=== PATIENT | female | born 1995 ===

== ENCOUNTER 2018-07-03 09:50 | Observation (INO) | payer MEDICAID | END 2018-07-03 12:00 | disposition home or self-care (01) | DRG 566 | LOC: LDRP 09:50 | PROVIDERS: ADMIT Obstetrics & Gynecology; ATTEND Obstetrics & Gynecology | DX: O48.0 Post-term pregnancy (principal); Z3A.40 40 weeks gestation of pregnancy | CPT/HCPCS: 59025; 76818; 81002; G0378 ==

== ENCOUNTER 2018-07-05 09:45 | Observation (INO) | payer MEDICAID ==
[2018-07-05] MEDS ORDERED: PREN-96 PO (10:00)
== END 2018-07-05 11:03 | disposition home or self-care (01) | DRG 566 ==
LOC: LDRP 09:45
PROVIDERS: ADMIT Obstetrics & Gynecology; ATTEND Obstetrics & Gynecology
DX: O48.0 Post-term pregnancy (principal); O26.893 Other specified pregnancy related conditions, third trimester; R10.9 Unspecified abdominal pain; Z3A.40 40 weeks gestation of pregnancy
CPT/HCPCS: 59025; 76818; 81002; G0378

== ENCOUNTER 2018-07-07 11:10 | Observation (INO) | payer MEDICAID ==
[~2018-07-07 11:10] MED LIST: PREN-96 PO
== END 2018-07-07 13:25 | disposition home or self-care (01) | DRG 566 ==
LOC: LDRP 11:10
PROVIDERS: ADMIT Specialist; ATTEND Specialist
DX: O48.0 Post-term pregnancy (principal); Z3A.40 40 weeks gestation of pregnancy
CPT/HCPCS: 59025; 76818; 81002; G0378

== ENCOUNTER 2018-07-09 10:10 | Observation (INO) | payer MEDICAID ==
[~2018-07-09] VITALS: Ht 157.5 cm; Wt 90.7 kg
== END 2018-07-09 12:35 | disposition home or self-care (01) | DRG 566 ==
LOC: LDRP 10:10
PROVIDERS: ADMIT Specialist; ATTEND Specialist
DX: O48.0 Post-term pregnancy (principal); O26.893 Other specified pregnancy related conditions, third trimester; R10.9 Unspecified abdominal pain; O62.9 Abnormality of forces of labor, unspecified; Z3A.40 40 weeks gestation of pregnancy
CPT/HCPCS: 59025; 76818; 81002; G0378

== ENCOUNTER 2018-07-10 09:50 | Inpatient (IN) | payer MEDICAID ==
[~2018-07-10] VITALS: Ht 157.5 cm; Wt 90.7 kg
[2018-07-10] MEDS ORDERED: LACT. RINGERS/OXYTOCIN 20UNITS 1,000 ML IV SCH (10:04)
[2018-07-10] MEDS ORDERED: LIDOCAINE 2% (LOCAL ANESTH.) PF 5ml SDV ID ONE (10:15)
[2018-07-10] MEDS ORDERED: DERMOPLAST 60ML BOTTLE TOP PRN (10:15)
[2018-07-10] MEDS ORDERED: CARBOPROST TROMETHAMINE 250 MCG/1ML VIAL IM PRN (10:15)
[2018-07-10] MEDS ORDERED: METHYLERGONOVINE MALEATE 0.2 MG/ML AMP IM PRN (10:15)
[2018-07-10] MEDS ORDERED: PHISODERM TOP SOLN 240ML BTL TOP PRN (10:15)
[2018-07-10] MEDS ORDERED: NALBUPHINE HCL 10 MG/1ml INJECTION IV PRN (10:15)
[2018-07-10] MEDS ORDERED: WITCH HAZEL-GLYCERIN PAD TOP PRN (10:15)
[2018-07-10 10:37] LABS: Basophils # (auto) 0 uL; Basophils % (auto) 0.3 % (0.0-2.0); Eosinophils # (auto) 0.1 uL; Hematocrit 40.6 % (36.0-46.0); Hemoglobin 13.8 g/dL (12.2-16.2); Lymphocytes # (auto) 1.6 uL; Lymphocytes % (auto) 20.3 % (10.0-50.0); Mean Corpuscular Hemoglobin 29.9 pg (28.0-32.0); Mean Corpuscular Hgb Conc. 33.9 g/dL (32.0-36.0); Monocytes # (auto) 0.7 uL; Monocytes % (auto) 9.5 % (0.0-12.0); Neutrophils # (auto) 5.3 uL; Neutrophils % (auto) 68.9 % (37.0-80.0); Nucleated Red Blood Cells % 0.1 %; Platelet Count (auto) 264 10^3/uL (140-450); Red Blood Cells 4.62 10^6/uL (4.0-5.20); Red Cell Distribution Width 14.7 % (11.8-14.3); White Blood Cell 7.8 10^3/uL (4.4-10.8)
[2018-07-10 10:46] LABS: Urine Bacteria FEW /hpf (None Seen); Urine Blood Negative /uL (Negative); Urine Mucus FEW (None Seen); Urine Specific Gravity 1.026 (1.001-1.035); Urine WBC 36 /hpf (0 - 5)
[2018-07-10 10:50] LABS: INR 0.82 (0.9-1.15); Partial Thromboplastin Time 29.5 sec (23.78-33.04); Prothrombin Time 8.9 sec (9.27-12.13)
[2018-07-10 10:52] LABS: Albumin 2.4 g/dL (3.4-5.0); BUN/Creatinine Ratio 17.9; Calcium 8.6 mg/dL (8.5-10.1); Potassium 4.2 mmol/L (3.5-5.1)
[2018-07-10 10:53] LABS: Alcohol, Urine < 3.0 mg/dL (0-5); Amphetamine Screen, Urine NEGATIVE (NEGATIVE); Barbiturate Scree,Urine NEGATIVE (NEGATIVE); Benzodiazephine Screen, Urine NEGATIVE (NEGATIVE); Cannabinoid Screen, Urine NEGATIVE (NEGATIVE); Cocaine Screen, Urine NEGATIVE (NEGATIVE); Opiate Scree,Urine NEGATIVE (NEGATIVE); Phencyclidine Screen, Urine NEGATIVE (NEGATIVE)
[2018-07-10 10:55] LABS: Bilirubin, Total 0.3 mg/dL (0.2-1.0); Total Protein 6.6 g/dL (6.4-8.2)
[2018-07-10] MEDS: LACTATED RINGER'S 1,000 ML IV SCH ×2 (10:59→15:04)
[2018-07-10] MEDS ORDERED: TERBUTALINE SULFATE 1 MG/ML 1ML VIAL SC ONE (23:15)
[2018-07-11] VITALS (9 sets, daily range): BP systolic 114–131; BP diastolic 53–98
[2018-07-11] MEDS: LACTATED RINGER'S 1,000 ML IV SCH ×4 (02:02→21:00)
[2018-07-11 04:08] LABS: RPR Non Reactive (Non Reactive)
[2018-07-11] MEDS ORDERED: LACT. RINGERS/OXYTOCIN 20UNITS 1,000 ML IV SCH (06:00)
[2018-07-11] MEDS ORDERED: NALOXONE HCL 0.4 MG/ML VIAL IV ONE (09:15)
[2018-07-11] MEDS ORDERED: fentaNYL W ROPIVACAINE 150 ML EPI SCH (09:15)
[2018-07-11] MEDS ORDERED: ePHEDrine SULFATE 50 MG/ML AMP IV ONE (09:15)
[2018-07-11] MEDS ORDERED: TETRACAINE 1% INJ 2 ML VIAL IJ ONE (10:56)
[2018-07-11] MEDS ORDERED: PHENYLEPHRINE HCL 10 MG/ML VL ONE (11:04)
[2018-07-11] MEDS ORDERED: ePHEDrine SULFATE 50 MG/ML AMP ONE (11:04)
[2018-07-11] MEDS ORDERED: ceFAZolin 1GM VL ONE (11:04)
[2018-07-11] MEDS ORDERED: MORPHINE SULF(PF) 0.5MG/ML 10ML VIAL ONE (11:05)
[2018-07-11] MEDS ORDERED: ONDANSETRON HCL 4 MG/2 ML VIAL ONE (11:53)
[2018-07-11] MEDS ORDERED: METOCLOPRAMIDE HCL 5MG/ml INJ 2ml VIAL ONE (11:53)
[2018-07-11] MEDS ORDERED: ONDANSETRON HCL 4 MG/2 ML VIAL IV ONE (12:15)
[2018-07-11] MEDS ORDERED: KETOROLAC TROMETH 30 MG/ML 1ML VIAL IV PRN (12:15)
[2018-07-11] MEDS ORDERED: NALOXONE HCL 0.4 MG/ML VIAL IV PRN ×2 (12:15)
[2018-07-11] MEDS ORDERED: ONDANSETRON HCL 4 MG/2 ML VIAL IV PRN ×2 (12:15→12:45)
[2018-07-11] MEDS ORDERED: diphenhdrAMINE HCL 50 MG/1 ML VL IV PRN (12:15)
[2018-07-11] MEDS ORDERED: HYDROmorphone HCL 2 MG/ML VL IV PRN (12:15)
[2018-07-11] MEDS ORDERED: MORPHINE SULFATE 4 MG/ML SYR/VIAL IV PRN (12:45)
[2018-07-11] MEDS ORDERED: OXYTOCIN 10UNIT/ML 1ML VIAL ONE (12:47)
[2018-07-11] MEDS: ceFAZolin 1GM/50ML 50 ML IV SCH (16:51)
[2018-07-11] MEDS: KETOROLAC TROMETH 30 MG/ML 1ML VIAL IV SCH (18:18)
[2018-07-12] VITALS (8 sets, daily range): BP systolic 96–130; BP diastolic 54–78
[2018-07-12] MEDS: ceFAZolin 1GM/50ML 50 ML IV SCH ×2 (00:30→10:26)
[2018-07-12] MEDS: KETOROLAC TROMETH 30 MG/ML 1ML VIAL IV SCH ×2 (00:30→06:35)
[2018-07-12] MEDS: LACTATED RINGER'S 1,000 ML IV SCH ×3 (05:30→20:20)
[2018-07-12 08:26] LABS: Basophils # (auto) 0.1 uL; Basophils % (auto) 0.5 % (0.0-2.0); Eosinophils # (auto) 0 uL; Eosinophils % (auto) 0.3 % (0.0-7.0); Hematocrit 36.2 % (36.0-46.0); Hemoglobin 11.9 g/dL (12.2-16.2); Lymphocytes # (auto) 1.5 uL; Lymphocytes % (auto) 14.1 % (10.0-50.0); Mean Corpuscular Hemoglobin 29.1 pg (28.0-32.0); Mean Corpuscular Hgb Conc. 32.8 g/dL (32.0-36.0); Mean Corpuscular Volume 88.6 fL (80.0-100.0); Monocytes # (auto) 0.8 uL; Monocytes % (auto) 7.1 % (0.0-12.0); Neutrophils # (auto) 8.3 uL; Nucleated Red Blood Cells % 0.1 %; Platelet Count (auto) 249 10^3/uL (140-450); Red Blood Cells 4.09 10^6/uL (4.0-5.20); Red Cell Distribution Width 15.1 % (11.8-14.3); White Blood Cell 10.6 10^3/uL (4.4-10.8)
[2018-07-12] MEDS ORDERED: HYDROcodone-ACET 5/325MG TAB PO PRN (10:30)
[2018-07-12] MEDS: DOCUSATE SOD 100 MG CAP PO SCH ×2 (10:37→21:34)
[2018-07-12] MEDS: HYDROcodone-ACET 5/325MG TAB PO PRN ×2 (15:54→21:34)
[2018-07-13] MEDS: SIMETHICONE 80 MG CHEWABLE TABLET PO PRN ×3 (02:28→14:59)
[2018-07-13 03:30] VITALS: BP 125/78
[2018-07-13] MEDS: IBUPROFEN 800 MG TAB PO PRN ×3 (03:43→22:50)
[2018-07-13 07:05] VITALS: BP 121/62
[2018-07-13] MEDS: DOCUSATE SOD 100 MG CAP PO SCH ×2 (10:29→22:50)
[2018-07-13 11:00] VITALS: BP 97/76
[2018-07-13 15:00] VITALS: BP 121/65
[2018-07-13 19:00] VITALS: BP 120/72
[2018-07-13 23:00] VITALS: BP 126/72
[2018-07-13] MEDS ORDERED: BISACODYL 10 MG RECT SUPP PR ONE (23:00)
[2018-07-14 04:00] VITALS: BP 103/68
[2018-07-14 06:40] VITALS: BP 117/67
== END 2018-07-14 08:55 | disposition home or self-care (01) | DRG 540 ==
LOC: LDRP 09:50
PROVIDERS: ADMIT Specialist; ATTEND Specialist
PROC: 10D00Z1 Extraction of Products of Conception, Low, Open Approach (ICD-10-PCS; principal; 2018-07-11 11:16)
DX: O62.0 Primary inadequate contractions (principal); O72.1 Other immediate postpartum hemorrhage; O77.0 Labor and delivery complicated by meconium in amniotic fluid; Z37.0 Single live birth; Z3A.41 41 weeks gestation of pregnancy
CPT/HCPCS: 36415; 59025; 76815; 80053; 80307; 81001; 81002; 85025; 85610; 85730; 86592; 86850; 86900; 86901; 94762; 96365; 96366; 96375; J0690; J1885; J2001; J2405; J2590; J3010

== ENCOUNTER 2021-01-16 09:32 | Observation (INO) | payer MEDICAID | END 2021-01-16 11:30 | disposition home or self-care (01) | LOC: LDRP 09:32 | PROVIDERS: ADMIT Obstetrics & Gynecology; ATTEND Obstetrics & Gynecology | DX: O46.93 Antepartum hemorrhage, unspecified, third trimester (principal); Z3A.30 30 weeks gestation of pregnancy | CPT/HCPCS: 59025; 76815; 81002; G0378 ==

== ENCOUNTER 2021-03-20 03:57 | Inpatient (IN) | payer MEDICAID ==
[~2021-03-20] VITALS: Ht 157.5 cm; Wt 90.7 kg
[2021-03-20] VITALS (15 sets, daily range): BP systolic 98–143; BP diastolic 57–84
[2021-03-20] MEDS ORDERED: LACTATED RINGER'S 1,000 ML IV ONE (04:15)
[2021-03-20] MEDS ORDERED: ceFAZolin 1GM/50ML 50 ML IV ONE (04:15)
[2021-03-20 04:54] LABS: Basophils # (auto) 0 10 ^3/uL (0-0.2); Basophils % (auto) 0.5 % (0.0-2.0); Eosinophils # (auto) 0.1 10 ^3/uL (0-0.8); Eosinophils % (auto) 1.7 % (0.0-7.0); Hematocrit 36.1 % (36.0-46.0); Hemoglobin 12.3 g/dL (12.2-16.2); Lymphocytes # (auto) 1.9 10 ^3/uL (0.4-5.4); Lymphocytes % (auto) 23.1 % (10.0-50.0); Mean Corpuscular Hemoglobin 29.2 pg (28.0-32.0); Mean Corpuscular Volume 85.9 fL (80.0-100.0); Monocytes # (auto) 0.6 10 ^3/uL (0-1.3); Monocytes % (auto) 7.1 % (0.0-12.0); Neutrophils # (auto) 5.6 10 ^3/uL (1.6-8.6); Neutrophils % (auto) 67.6 % (37.0-80.0); Platelet Count (auto) 310 10^3/uL (140-450); Red Cell Distribution Width 14.7 % (11.8-14.3); White Blood Cell 8.3 10^3/uL (4.4-10.8)
[2021-03-20 05:01] LABS: INR 0.91 (0.9-1.15); Partial Thromboplastin Time 28.4 sec (23.0-31.2)
[2021-03-20 05:02] LABS: Urine Bacteria MOD /hpf (None Seen); Urine Blood Negative /uL (Negative); Urine Mucus FEW (None Seen); Urine Specific Gravity 1.026 (1.001-1.035); Urine WBC 62 /hpf (0 - 5)
[2021-03-20 05:06] LABS: Albumin 2.3 g/dL (3.4-5.0); Calcium 8.4 mg/dL (8.5-10.1); Potassium 3.8 mmol/L (3.5-5.1)
[2021-03-20 05:08] LABS: Amphetamine Screen, Urine NEGATIVE (NEGATIVE); Barbiturate Scree,Urine NEGATIVE (NEGATIVE); Benzodiazephine Screen, Urine NEGATIVE (NEGATIVE); Cannabinoid Screen, Urine NEGATIVE (NEGATIVE); Cocaine Screen, Urine NEGATIVE (NEGATIVE); Opiate Scree,Urine NEGATIVE (NEGATIVE); Phencyclidine Screen, Urine NEGATIVE (NEGATIVE)
[2021-03-20 05:10] LABS: BUN/Creatinine Ratio 26.4; Bilirubin, Total 0.3 mg/dL (0.2-1.0); Total Protein 6.4 g/dL (6.4-8.2)
[2021-03-20] MEDS: LACTATED RINGER'S 1,000 ML IV SCH ×2 (05:40→13:35)
[2021-03-20] MEDS ORDERED: MORPHINE SULF(PF) 0.5MG/ML 10ML VIAL ONE (07:25)
[2021-03-20] MEDS ORDERED: ONDANSETRON HCL 4 MG/2 ML VIAL IV PRN ×2 (07:30→08:45)
[2021-03-20] MEDS ORDERED: LACT. RINGERS/OXYTOCIN 20UNITS 1,000 ML IV ONE (07:30)
[2021-03-20] MEDS ORDERED: oxyTOCIN 10 UNIT/ML 10ML VIAL ONE (07:34)
[2021-03-20] MEDS ORDERED: MIDAZOLAM HCL 1MG/1ML-2 ML VIAL ONE (07:46)
[2021-03-20] MEDS ORDERED: CARBOPROST TROMETHAMINE 250 MCG/1ML VIAL IM ONE ×3 (07:52→09:00)
[2021-03-20] MEDS ORDERED: ePHEDrine SULFATE 50 MG/ML AMP ONE (07:53)
[2021-03-20] MEDS ORDERED: METHYLERGONOVINE MALEATE 0.2 MG/ML AMP IM ONE (07:57)
[2021-03-20] MEDS: miSOPROStol 100 mcg TAB ONE ×2 (08:35→08:36)
[2021-03-20] MEDS ORDERED: NALOXONE HCL 0.4 MG/ML VIAL IV PRN (08:45)
[2021-03-20] MEDS ORDERED: NALBUPHINE HCL 10 MG/1ml INJECTION SUBCUT ONE (08:45)
[2021-03-20] MEDS ORDERED: HYDROmorphone HCL 2 MG/ML VL IV PRN (08:45)
[2021-03-20] MEDS ORDERED: diphenhdrAMINE HCL 50 MG/1 ML VL IV PRN (08:45)
[2021-03-20] MEDS ORDERED: HYDROmorphone HCL 2 MG/ML VL ONE (09:12)
[2021-03-20] MEDS ORDERED: DIPHENOXYLATE W/ATROPINE 2.5 MG TAB PO SCH (09:15)
[2021-03-20] MEDS ORDERED: ACETAMINOPHEN IV 1000 MG/100ML (10MG/ML) IV ONE (10:00)
[2021-03-20] MEDS ORDERED: DIPHENOXYLATE W/ATROPINE 2.5 MG TAB PO PRN (10:15)
[2021-03-20] MEDS: ceFAZolin 1GM/50ML 50 ML IV SCH ×2 (14:44→23:02)
[2021-03-20] MEDS: MORPHINE SULF INJ 2 MG/ML SYRINGE 1ML IV PRN (20:40)
[2021-03-20 22:43] LABS: Basophils # (auto) 0 10 ^3/uL (0-0.2); Basophils % (auto) 0.1 % (0.0-2.0); Eosinophils # (auto) 0 10 ^3/uL (0-0.8); Hematocrit 36.7 % (36.0-46.0); Hemoglobin 12.5 g/dL (12.2-16.2); Lymphocytes # (auto) 1.3 10 ^3/uL (0.4-5.4); Lymphocytes % (auto) 8.7 % (10.0-50.0); Mean Corpuscular Hemoglobin 29.1 pg (28.0-32.0); Mean Corpuscular Hgb Conc. 34.2 g/dL (32.0-36.0); Mean Corpuscular Volume 85.1 fL (80.0-100.0); Monocytes % (auto) 6.3 % (0.0-12.0); Neutrophils # (auto) 12.7 10 ^3/uL (1.6-8.6); Neutrophils % (auto) 84.9 % (37.0-80.0); Platelet Count (auto) 320 10^3/uL (140-450); Red Blood Cells 4.32 10^6/uL (4.0-5.20); Red Cell Distribution Width 14.6 % (11.8-14.3)
[2021-03-20] MEDS ORDERED: LACTATED RINGER'S 1,000 ML IV SCH (22:45)
[2021-03-21] VITALS (11 sets, daily range): BP systolic 100–114; BP diastolic 42–61
[2021-03-21] MEDS: MORPHINE SULF INJ 2 MG/ML SYRINGE 1ML IV PRN (01:03)
[2021-03-21] MEDS: ceFAZolin 1GM/50ML 50 ML IV SCH (06:48)
[2021-03-21 06:59] LABS: Basophils # (auto) 0.1 10 ^3/uL (0-0.2); Basophils % (auto) 0.8 % (0.0-2.0); Eosinophils # (auto) 0 10 ^3/uL (0-0.8); Eosinophils % (auto) 0.3 % (0.0-7.0); Hematocrit 34.4 % (36.0-46.0); Hemoglobin 11.8 g/dL (12.2-16.2); Lymphocytes # (auto) 2.4 10 ^3/uL (0.4-5.4); Lymphocytes % (auto) 17.2 % (10.0-50.0); Mean Corpuscular Hemoglobin 29.3 pg (28.0-32.0); Mean Corpuscular Hgb Conc. 34.2 g/dL (32.0-36.0); Mean Corpuscular Volume 85.8 fL (80.0-100.0); Monocytes # (auto) 1.1 10 ^3/uL (0-1.3); Monocytes % (auto) 7.9 % (0.0-12.0); Neutrophils # (auto) 10.1 10 ^3/uL (1.6-8.6); Neutrophils % (auto) 73.8 % (37.0-80.0); Nucleated Red Blood Cells % 0.1 %; Platelet Count (auto) 282 10^3/uL (140-450); Red Blood Cells 4.01 10^6/uL (4.0-5.20); Red Cell Distribution Width 14.7 % (11.8-14.3); White Blood Cell 13.7 10^3/uL (4.4-10.8)
[2021-03-21] MEDS ORDERED: HYDROcodone-ACET 5/325MG TAB PO PRN (07:00)
[2021-03-21 07:06] LABS: RPR Non Reactive (Non Reactive)
[2021-03-21] MEDS: HYDROcodone-ACET 5/325MG TAB PO PRN ×3 (07:45→22:04)
[2021-03-21] MEDS: DOCUSATE SOD 100 MG CAP PO SCH ×2 (10:34→22:04)
[2021-03-21] MEDS: SIMETHICONE 80 MG CHEWABLE TABLET PO SCH ×3 (12:00→22:03)
[2021-03-21] MEDS: IBUPROFEN 800 MG TAB PO PRN (13:37)
[2021-03-22] MEDS: HYDROcodone-ACET 5/325MG TAB PO PRN ×3 (02:46→20:33)
[2021-03-22 03:00] VITALS: BP 115/64
[2021-03-22] MEDS: SIMETHICONE 80 MG CHEWABLE TABLET PO SCH ×4 (05:49→22:05)
[2021-03-22] MEDS: IBUPROFEN 800 MG TAB PO PRN ×2 (05:49→14:38)
[2021-03-22 06:30] VITALS: BP 115/60
[2021-03-22] MEDS: DOCUSATE SOD 100 MG CAP PO SCH ×2 (10:54→22:05)
[2021-03-22 14:30] VITALS: BP 108/75
[2021-03-22] MEDS ORDERED: BISACODYL 10 MG RECT SUPP PR PRN (15:15)
[2021-03-22 19:10] VITALS: BP 116/75
[2021-03-22 23:12] VITALS: BP 108/61
[2021-03-22 23:25] VITALS: BP 110/64
[2021-03-23] MEDS: IBUPROFEN 800 MG TAB PO PRN (03:11)
[2021-03-23 03:15] VITALS: BP 128/75
[2021-03-23] MEDS: HYDROcodone-ACET 5/325MG TAB PO PRN (04:27)
[2021-03-23] MEDS: SIMETHICONE 80 MG CHEWABLE TABLET PO SCH (06:00)
[2021-03-23 06:52] VITALS: BP 115/70
== END 2021-03-23 08:50 | disposition home or self-care (01) | DRG 540 ==
LOC: LDRP 03:57
PROVIDERS: ADMIT Specialist; ATTEND Specialist
PROC: 10D00Z1 Extraction of Products of Conception, Low, Open Approach (ICD-10-PCS; principal; 2021-03-20 07:17)
DX: O34.219 Maternal care for unspecified type scar from previous cesarean delivery (principal); Z37.0 Single live birth; Z3A.39 39 weeks gestation of pregnancy
CPT/HCPCS: 36415; 59025; 80053; 80307; 81001; 81002; 85025; 85610; 85730; 86592; 86850; 86900; 86901; 94762; 96360; 96361; 96374; G0378; J0131; J0690; J2250; J2590

== ENCOUNTER 2021-09-17 22:20 | Emergency (ER) | payer MEDICAID ==
[~2021-09-17] VITALS: Ht 157.5 cm; Wt 77.1 kg
[2021-09-17 22:54] VITALS: BP 135/67
[2021-09-17 23:40] LABS: Basophils # (auto) 0.2 10 ^3/uL (0-0.2); Basophils % (auto) 1.6 % (0.0-2.0); Eosinophils # (auto) 0.1 10 ^3/uL (0-0.8); Eosinophils % (auto) 1.1 % (0.0-7.0); Hematocrit 42.5 % (36.0-46.0); Hemoglobin 14.1 g/dL (12.2-16.2); Lymphocytes # (auto) 0.7 10 ^3/uL (0.4-5.4); Lymphocytes % (auto) 6.7 % (10.0-50.0); Mean Corpuscular Hgb Conc. 33.1 g/dL (32.0-36.0); Mean Corpuscular Volume 84.7 fL (80.0-100.0); Monocytes # (auto) 0.4 10 ^3/uL (0-1.3); Neutrophils # (auto) 8.6 10 ^3/uL (1.6-8.6); Neutrophils % (auto) 86.6 % (37.0-80.0); Nucleated Red Blood Cells % 0.1 %; Red Blood Cells 5.02 10^6/uL (4.0-5.20); Red Cell Distribution Width 13.3 % (11.8-14.3); White Blood Cell 9.9 10^3/uL (4.4-10.8)
[2021-09-17 23:56] LABS: Albumin 3.6 g/dL (3.4-5.0); Calcium 8.3 mg/dL (8.5-10.1); Potassium 3.5 mmol/L (3.5-5.1)
[2021-09-18 00:01] LABS: BUN/Creatinine Ratio 22.5; Bilirubin, Total 0.6 mg/dL (0.2-1.0)
== END 2021-09-18 03:29 | disposition left against medical advice (07) ==
LOC: ER 22:20
DX: R07.89 Other chest pain (principal); R51.9 Headache, unspecified
CPT/HCPCS: 36415; 71045; 80053; 83880; 84484; 85025; 93005

== ENCOUNTER 2024-04-23 09:43 | Inpatient (IN) | payer MEDICAID ==
[2024-04-23] VITALS (8 sets, daily range): BP systolic 111–146; BP diastolic 66–84; PULSE 69–93; RESP 16–18; TEMP 97.8–98.8; O2SAT 96–100
[~2024-04-23] VITALS: Ht 157.5 cm; Wt 86.2 kg
[2024-04-23 11:31] LABS: Fern Testing Negative
[2024-04-23 12:46] LABS: Basophils # (auto) 0 10 ^3/uL (0-0.2); Eosinophils # (auto) 0.2 10 ^3/uL (0-0.8); Hematocrit 34.3 % (36.0-46.0); Hemoglobin 11.4 g/dL (12.2-16.2); Nucleated Red Blood Cells % 0.1 %; White Blood Cell 6.7 10^3/uL (4.4-10.8)
[2024-04-23 12:48] LABS: Basophils % (auto) 0.6 % (0.0-2.0); Eosinophils % (auto) 2.5 % (0.0-7.0); Lymphocytes # (auto) 1.6 10 ^3/uL (0.4-5.4); Lymphocytes % (auto) 24.7 % (10.0-50.0); Mean Corpuscular Hemoglobin 26.4 pg (28.0-32.0); Mean Corpuscular Hgb Conc. 33.2 g/dL (32.0-36.0); Mean Corpuscular Volume 79.3 fL (80.0-100.0); Monocytes # (auto) 0.5 10 ^3/uL (0-1.3); Neutrophils # (auto) 4.4 10 ^3/uL (1.6-8.6); Neutrophils % (auto) 65.2 % (37.0-80.0); Red Blood Cells 4.32 10^6/uL (4.0-5.20); Red Cell Distribution Width 15.5 % (11.8-14.3)
[2024-04-23 13:01] LABS: INR 0.89 (0.9-1.15); Partial Thromboplastin Time 27.1 SEC (24.5-34.5); Prothrombin Time 9.5 sec (9.3-11.8)
[2024-04-23 13:08] LABS: Alanine Aminotransferase 40 U/L (7-40); Albumin 3.4 g/dL (3.2-4.8); Alkaline Phosphatase 148 U/L (46-116); Anion Gap 4 (5-15); Aspartate Aminotransferase 24 U/L (13-40); BUN/Creatinine Ratio 15.5 (10.0-20.0); Blood Urea Nitrogen 9 mg/dL (9-23); Calcium 9.4 mg/dL (8.7-10.4); Carbon Dioxide 23 mmol/L (20-30); Chloride 109 mmol/L (98-107); Glucose 84 mg/dL (74-106); Potassium 3.8 mmol/L (3.5-5.1); Sodium 136 mmol/L (136-145)
[2024-04-23 13:09] LABS: Bilirubin, Total 0.5 mg/dL (0.2-1.0); Total Protein 6.2 g/dL (5.7-8.2)
[2024-04-23] MEDS: LACTATED RINGER'S 1,000 ML IV ONE ×2 (14:00→14:04)
[2024-04-23] MEDS ORDERED: GLYCOPYRROLATE 0.2 MG/ML 1ML VIAL ONE (15:00)
[2024-04-23] MEDS ORDERED: ONDANSETRON HCL 4 MG/2 ML VIAL ONE (15:00)
[2024-04-23] MEDS ORDERED: KETOROLAC TROMETH 30 MG/ML 1ML VIAL ONE (15:00)
[2024-04-23] MEDS ORDERED: PHENYLEPHRINE HCL 10 MG/ML VL ONE (15:00)
[2024-04-23] MEDS ORDERED: oxyTOCIN 10 UNIT/ML 10ML VIAL ONE (15:00)
[2024-04-23] MEDS ORDERED: ePHEDrine SULFATE 50 MG/ML AMP ONE (15:00)
[2024-04-23] MEDS ORDERED: MORPHINE SULF PF 5 MG/10 ML VIAL ONE (15:00)
[2024-04-23] MEDS ORDERED: fentaNYL CITRATE 100 MCG/2 ML VL ONE (15:00)
[2024-04-23] MEDS: ceFAZolin 2 GM/D5W50ml 50 ML IV ONE (15:17)
[2024-04-23 15:31] LABS: Urine Bacteria FEW /hpf (None Seen); Urine Blood TRACE /uL (Negative); Urine Clarity Turbid (Clear); Urine Color Light-Orange (Yellow); Urine Mucus FEW (None Seen); Urine Protein, UAD TRACE (Negative); Urine Specific Gravity 1.026 (1.001-1.035); Urine Urobilinogen Normal (Negative); Urine WBC 24 /hpf (0 - 5)
[2024-04-23 15:42] LABS: Amphetamine Screen, Urine Neg (NEGATIVE); Benzodiazephine Screen, Urine Neg (NEGATIVE)
[2024-04-23 15:43] LABS: Barbiturate Scree,Urine Neg (NEGATIVE); Cannabinoid Screen, Urine Neg (NEGATIVE); Cocaine Screen, Urine Neg (NEGATIVE); Opiate Scree,Urine Neg (NEGATIVE); Phencyclidine Screen, Urine Neg (NEGATIVE)
[2024-04-23] MEDS ORDERED: MIDAZOLAM HCL 2MG/2ML 2ml VIAL (1mg/ml) ONE (15:49)
[2024-04-23] MEDS ORDERED: IBUP-1455 PO (16:42)
[2024-04-23] MEDS ORDERED: HYDR1TAB97 PO (16:42)
[2024-04-23] MEDS ORDERED: KETOROLAC TROMETH 30 MG/ML 1ML VIAL IV PRN ×2 (16:45→17:00)
[2024-04-23] MEDS ORDERED: ceFAZolin 1GM/50ML 50 ML IV SCH (16:45)
[2024-04-23] MEDS ORDERED: MORPHINE SULFATE 4 MG/ML SYR/VIAL IV PRN (16:45)
[2024-04-23] MEDS ORDERED: ACETAMINOPHEN IV 1000 MG/100ML (10MG/ML) IV PRN (16:45)
[2024-04-23] MEDS: LACT. RINGERS/OXYTOCIN 20UNITS 1,000 ML IV ONE (16:45)
[2024-04-23] MEDS ORDERED: NALOXONE HCL 0.4 MG/ML VIAL IV PRN (17:00)
[2024-04-23] MEDS ORDERED: DexAMETHasone SOD PHOS 10MG/1ML VIAL INJ IV PRN (17:00)
[2024-04-23] MEDS: diphenhdrAMINE HCL 50 MG/1 ML VL IV PRN (19:27)
[2024-04-23] MEDS: ceFAZolin 1GM/50ML 50 ML IV SCH (22:06)
[2024-04-24] VITALS (16 sets, daily range): BP systolic 93–124; BP diastolic 43–78; PULSE 70–96; RESP 15–20; TEMP 98.2–99.1; O2SAT 90–100
[2024-04-24] MEDS: ACETAMINOPHEN IV 1000 MG/100ML (10MG/ML) IV PRN (05:17)
[2024-04-24 06:15] LABS: Basophils # (auto) 0 10 ^3/uL (0-0.2); Eosinophils # (auto) 0.1 10 ^3/uL (0-0.8); Hemoglobin 10.5 g/dL (12.2-16.2); Lymphocytes # (auto) 1.7 10 ^3/uL (0.4-5.4); Lymphocytes % (auto) 19.1 % (10.0-50.0); Monocytes # (auto) 0.5 10 ^3/uL (0-1.3); Neutrophils # (auto) 6.4 10 ^3/uL (1.6-8.6); White Blood Cell 8.7 10^3/uL (4.4-10.8)
[2024-04-24 06:17] LABS: Basophils % (auto) 0.5 % (0.0-2.0); Eosinophils % (auto) 1.5 % (0.0-7.0); Hematocrit 31.7 % (36.0-46.0); Mean Corpuscular Volume 78.8 fL (80.0-100.0); Monocytes % (auto) 5.4 % (0.0-12.0); Neutrophils % (auto) 73.5 % (37.0-80.0); Nucleated Red Blood Cells % 0.1 %; Red Blood Cells 4.03 10^6/uL (4.0-5.20); Red Cell Distribution Width 15.5 % (11.8-14.3)
[2024-04-24 08:07] LABS: RPR Non Reactive (Non Reactive)
[2024-04-24] MEDS ORDERED: HYDROmorphone HCL 2 MG/ML VL/or syr IV ONE (08:30)
[2024-04-24] MEDS: ONDANSETRON HCL 4 MG/2 ML VIAL IV PRN (08:31)
[2024-04-24] MEDS: HYDROmorphone HCL 2 MG/ML VL/or syr IV PRN (08:32)
[2024-04-24] MEDS: HYDROcodone-ACET 5/325MG TAB PO PRN ×2 (16:31→20:31)
[2024-04-24] MEDS: SIMETHICONE 80 MG CHEWABLE TABLET PO SCH (19:25)
[2024-04-24] MEDS: IBUPROFEN 800 MG TAB PO PRN (19:25)
[2024-04-25] MEDS: DOCUSATE SOD 100 MG CAP PO SCH (00:03)
[2024-04-25 03:15] VITALS: BP 107/74; PULSE 92; RESP 16; TEMP 98.1; O2SAT 97
[2024-04-25] MEDS: DOCUSATE CALCIUM 240 MG CAP PO SCH (06:44)
[2024-04-25 07:00] VITALS: BP 119/77; PULSE 85; RESP 16; TEMP 98; O2SAT 96
[2024-04-26 20:06] LABS: Treponema pallidum Ab (FTA-Ab) Non Reactive (Non Reactive)
== END 2024-04-25 08:34 | disposition home or self-care (01) | DRG 540 ==
LOC: LDRP 09:43 → OBSVTOIN 14:17 → LDRP 15:43
PROVIDERS: ADMIT Obstetrics & Gynecology; ATTEND Obstetrics & Gynecology
PROC: 10D00Z1 Extraction of Products of Conception, Low, Open Approach (ICD-10-PCS; principal; 2024-04-23 15:27)
DX: O34.211 Maternal care for low transverse scar from previous cesarean delivery (principal); O76 Abnormality in fetal heart rate and rhythm complicating labor and delivery; Z37.0 Single live birth; Z3A.37 37 weeks gestation of pregnancy
CPT/HCPCS: 36415; 59025; 80053; 80307; 81001; 81002; 84112; 85025; 85610; 85730; 86592; 86803; 86850; 86900; 86901; 94760; 94762; 96360; 96361; 96365; 96366; 96374; 96375; G0378; J0131; J1885; J2250; J2405; J2590

== ENCOUNTER → 2025-03-23 | Outpatient (CLI) | payer MEDICAID ==
[~2025-03-23] MED LIST changes: +HYDR1TAB97 PO; +IBUP-1455 PO
[2025-03-23 09:12] LABS: Basophils # (auto) 0 10 ^3/uL (0-0.2); Basophils % (auto) 0.8 % (0.0-2.0); Eosinophils # (auto) 0.2 10 ^3/uL (0-0.8); Hematocrit 40.9 % (36.0-46.0); Hemoglobin 13.7 g/dL (12.2-16.2); Lymphocytes # (auto) 1.9 10 ^3/uL (0.4-5.4); Lymphocytes % (auto) 36.4 % (10.0-50.0); Mean Corpuscular Hemoglobin 28.3 pg (28.0-32.0); Mean Corpuscular Hgb Conc. 33.5 g/dL (32.0-36.0); Mean Corpuscular Volume 84.4 fL (80.0-100.0); Monocytes # (auto) 0.4 10 ^3/uL (0-1.3); Monocytes % (auto) 6.8 % (0.0-12.0); Neutrophils # (auto) 2.8 10 ^3/uL (1.6-8.6); Nucleated Red Blood Cells % 0.1 %; Platelet Count (auto) 258 10^3/uL (140-450); Red Blood Cells 4.85 10^6/uL (4.0-5.20); Red Cell Distribution Width 15.1 % (11.8-14.3); White Blood Cell 5.3 10^3/uL (4.4-10.8)
[2025-03-23 09:26] LABS: Urine Bacteria MOD /hpf (None Seen); Urine Blood 1+ /uL (Negative); Urine Clarity Turbid (Clear); Urine Color Light-Orange (Yellow); Urine Mucus FEW (None Seen); Urine Protein, UAD Negative (Negative); Urine Specific Gravity 1.031 (1.001-1.035); Urine Squamous Epithelial Cell MOD /hpf (<5); Urine Urobilinogen Normal (Negative); Urine WBC 35 /HPF (0-5); Urine pH 5.5 (5.0-9.0)
[2025-03-23 10:09] LABS: Alanine Aminotransferase 14 U/L (7-40); Alkaline Phosphatase 55 U/L (46-116); Anion Gap 9 (5-15); Calcium 9.4 mg/dL (8.7-10.4); Carbon Dioxide 25 mmol/L (20-31); Chloride 104 mmol/L (98-107); Potassium 4.1 mmol/L (3.5-5.1); Sodium 138 mmol/L (136-145)
[2025-03-23 10:10] LABS: Glucose 88 mg/dL (74-106); Triglycerides 62 mg/dL (< 150)
[2025-03-23 10:11] LABS: BUN/Creatinine Ratio 23.7 (10.0-20.0); Blood Urea Nitrogen 14 mg/dL (9-23); LDL Cholesterol 98 mg/dL (< 100); Total Protein 7.2 g/dL (5.7-8.2)
[2025-03-23 10:12] LABS: Albumin 4.3 g/dL (3.2-4.8); Aspartate Aminotransferase 8 U/L (13-40); Cholesterol 159 mg/dL (< 200); HDL Cholesterol 51 mg/dL (40-59)
[2025-03-23 10:13] LABS: Bilirubin, Total 0.9 mg/dL (0.2-1.0)
== END | disposition home or self-care (01) ==
LOC: LAB 08:50
PROVIDERS: ATTEND Nurse Practitioner Family
DX: I10 Essential (primary) hypertension (principal); Z00.01 Encounter for general adult medical examination with abnormal findings
CPT/HCPCS: 36415; 80053; 80061; 81001; 84443; 85025